=== PATIENT | male | born 1950 | race Two or more races ===

== ENCOUNTER → 2016-07-04 | Outpatient (CLI) | payer MEDICARE ==
--- NOTE | 2016-07-04 09:58 | RAD ---
BRAIN W/O CONTRAST Indication: RECENT FALLS, UNSTEADY GAIT, NO SX HX, NO PRIORS Reason: UNSTEADY GAIT / Spl. Instructions: NO CONTRAST PER ORDER / History: COMPARISON: None TECHNIQUE: Axial diffusion weighted imaging was obtained. Additional sagittal T1, axial T1, axial FLAIR, and axial T2 weighted imaging of the brain was also performed. FINDINGS: There are scattered foci of FLAIR signal hyperintensity in the periventricular white matter which are nonspecific but most likely related to sequelae of chronic small vessel ischemic disease. No evidence of acute intracranial hemorrhage. No restricted diffusion to indicate acute infarct. No extra-axial fluid collections. No midline shift or mass effect. Ventricular size is appropriate. Midline structures have a normal anatomic configuration. Basal cisterns are patent. Arterial flow voids at the skull base and major dural venous sinuses are maintained. Globes and orbits are unremarkable. Paranasal sinuses and mastoid air cells are clear. IMPRESSION: - No acute or recent infarct. No acute intracranial abnormality. - Nonspecific white matter disease likely representing sequelae of chronic small vessel ischemic disease. Electronically signed by: John Styles (Jul 04, 2016 09:56:43)
== END | disposition home or self-care (01) ==
LOC: MRI 08:20
PROVIDERS: ATTEND Family Medicine
DX: R26.81 Unsteadiness on feet (principal)
CPT/HCPCS: 70551

== ENCOUNTER 2019-03-25 06:36 | Day surgery (SDC) | payer MEDICARE, MEDICAID ==
[~2019-03-25] VITALS: Ht 165.1 cm; Wt 78.0 kg
[~2019-03-25 06:36] MED LIST: ATOR20TA58 PO; BUPIVACAINE-EPI 0.5%-1:200000 MPF 30 ML VIAL. INJ ONE; CHOL10003 PO; GABA600T7 PO; INSU100V13 SQ; METF10007 PO; METO-247 PO
[2019-03-25] MEDS ORDERED: LIDOCAINE 2% PF 5 ML VIAL. ONE (06:47)
[2019-03-25] MEDS ORDERED: PROPOFOL 20 ML IV ONE (06:47)
[2019-03-25] MEDS ORDERED: ONDANSETRON PF 4 MG/2 ML VIAL. ONE (06:47)
[2019-03-25] MEDS ORDERED: DEXAMETHASONE SOD PHOS 4 MG/ML VIAL ONE (06:47)
[2019-03-25] MEDS ORDERED: PROCHLORPERAZINE 10 MG/2 ML VIAL. IV PRN (07:00)
[2019-03-25] MEDS ORDERED: IV RINGERS,LACTATED 1000ML 1,000 ML IV SCH (07:00)
[2019-03-25] MEDS ORDERED: MORPHINE SULFATE 2 MG/ML VIAL. IV PRN (07:00)
[2019-03-25] MEDS ORDERED: LIDOCAINE 1% PF 2 ML VIAL. ID PRN (07:00)
[2019-03-25] MEDS ORDERED: ONDANSETRON PF 4 MG/2 ML VIAL. IV PRN (07:00)
[2019-03-25] MEDS ORDERED: HYDROmorphone 2 MG/ML VIAL IV PRN (07:00)
[2019-03-25] MEDS ORDERED: fentaNYL PF VIAL 100 MCG/2 ML VIAL IV PRN (07:00)
[2019-03-25] MEDS ORDERED: GELATIN SPONGE SIZE 100. ONE (07:14)
[2019-03-25] MEDS ORDERED: LIDOCAINE 2% JELLY 6ML IN APPLICATOR. ONE (07:14)
[2019-03-25 07:26] LABS: BASO # 0.1 x10^3/uL (0.0-0.2); BASO % 1 % (0-3); EOS # 0.2 x10^3/uL (0.0-0.7); EOS % 1 % (0-3); HEMATOCRIT 43.7 % (39.0-53.0); HEMOGLOBIN 15.2 g/dL (13.0-17.5); LYMPH # 4.4 x10^3/uL (1.0-4.8); LYMPH % 33 % (24-48); MEAN CORPUSCULAR HEMOGLOBIN 33 pg (25-35); MEAN CORPUSCULAR HGB CONC 35 g/dL (31-37); MEAN CORPUSCULAR VOLUME 94 fL (79-100); MONO # 1.1 x10^3/uL (0.0-1.1); MONO % 8 % (0-9); NEUT # 7.7 x10^3/uL (1.8-7.7); NEUT % 57 % (31-73); PLATELET COUNT 198 x10^3/uL (140-400); RED BLOOD COUNT 4.65 x10^6/uL (4.30-5.70); RED CELL DISTRIBUTION WIDTH 13.5 % (11.5-14.5); WHITE BLOOD COUNT 13.5 x10^3/uL (4.0-11.0)
[2019-03-25] MEDS: INSULIN LISPRO 100 UNIT/ML 3ML VIAL for OP,RR ONLY. SQ PRN ×3 (07:32→10:06)
[2019-03-25 07:35] LABS: CALCIUM 8.7 mg/dL (8.5-10.1); CREATININE 0.9 mg/dL (0.7-1.3); GFR 84.2; POTASSIUM 3.9 mmol/L (3.5-5.1); PROTHROMBIN TIME PATIENT 12.6 SEC (11.7-14.0)
[2019-03-25] MEDS ORDERED: fentaNYL PF VIAL 100 MCG/2 ML VIAL ONE (07:42)
[2019-03-25] MEDS ORDERED: ROCURONIUM 50 MG/5 ML VIAL. ONE (07:43)
[2019-03-25] MEDS ORDERED: ceFAZolin SODIUM 1 GM VIAL ONE (08:25)
[2019-03-25] MEDS ORDERED: NEOSTIGMINE METHYLSULFATE 5 MG/5 ML SYRINGE. ONE (08:38)
[2019-03-25] MEDS ORDERED: GLYCOPYRROLATE 1 MG/5 ML VIAL. ONE (08:38)
--- NOTE | 2019-03-25 08:57 | DISCH ---
DISCHARGE INSTRUCTIONS Condition on Discharge Condition on Discharge: Stable Activity After Discharge Activity Instructions for Disc: Activity as tolerated, Avoid exertion Lifting Instructions after Dis: No heavy lifting Driving Instructions after Dis: Do not drive today Diet after Discharge Diet after Discharge: Regular Wound Incision Care Other wound/incision instructi: ok to shower, frequent sitz bathes Follow-Up Follow up with: Chava 04/01/19 PATRICK LALA MD Mar 25, 2019 08:57
[2019-03-25] MEDS ORDERED: OXYC1TAB15 PO (09:12)
[2019-03-25] MEDS ORDERED: DOCU-150 PO (09:13)
[2019-03-25] MEDS ORDERED: SEVOFLURANE 31 TO 60 MINUTES. IH ONE (09:16)
[2019-03-25] MEDS ORDERED: LIDO30CR TP (09:16)
[2019-03-25] MEDS ORDERED: oxyCODONE/APAP 5/325 1 TAB TABLET PO ONE (09:30)
--- NOTE | 2019-03-25 09:32 | PDOC ---
BRIEF OPERATIVE NOTE Date: Mar 25, 2019 Pre-Op Diagnosis anal fissure Post-Op Diagnosis same Procedure Performed rigid procto LIS Surgeon Chava Anesthesia Type: General Blood Loss 5cc IV Fluid 1000cc Specimens Obtained perianal skin tag Findings anal fissure Complications none Operative Note Wk # [id number] PATRICK LALA MD Mar 25, 2019 09:32
[2019-03-25] MEDS: fentaNYL PF VIAL 100 MCG/2 ML VIAL IV PRN ×2 (09:34→09:47)
--- NOTE | 2019-03-25 09:37 | OP ---
DATE OF SURGERY: 03/25/2019 PREOPERATIVE DIAGNOSIS: Anal fissure. POSTOPERATIVE DIAGNOSIS: Anal fissure. PROCEDURE: 1. Rigid proctoscopy. 2. Lateral internal sphincterotomy. SURGEON: Patrick Lala MD ANESTHESIA: General endotracheal. BLOOD LOSS: 5 mL. INTRAVENOUS FLUIDS: A liter. DESCRIPTION OF PROCEDURE: The patient was brought to the operating suite, given general endotracheal anesthetic, placed in the prone jackknife position, buttocks taped apart. Visual exam of the anal orifice showed fissures at 12 and 6 o'clock with a sentinel pile at 12 o'clock. This was excised. With two fingers in the anal canal, the internal sphincter was divided with an 11 blade. Gentle 3-finger dilatation carried out. Good hemostasis was present. Gelfoam pack placed in the anal canal. Prior to the sphincterotomy, the rigid scope was inserted and advanced to approximately 10 cm from the anal verge where a large amount of soft stool was encountered and as such the scope was slowly removed and showed no evidence of mucosal abnormalities. A sterile dressing applied. The patient was taken out of the prone position, awakened from his anesthetic and taken to the recovery room in satisfactory condition. PATRICK LALA MD DR: DELILAH/cole JOB#: [id number] / [id number]
[2019-03-25 09:50] VITALS: BP 163/78
--- NOTE | 2019-03-26 19:08 | PATHOLOGY ---
[facility] Accession Number: [id number] . 01 Material submitted: . perianal area - PERIANAL SKIN TAG . 01 Clinical history: . Anal fissure . 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 (SHA:tammi; 03/26/2019) S 03/26/2019 1526 Local . 02 Electronically signed: . Flaquito Jhaveri MD, Pathologist NPI- [id number] . 01 Gross description: . The specimen is received in formalin, labeled "Frida, Phi, perianal skin tag", is a caldwell-purple, rubbery segment measuring 0.8 x 0.5 x 0.4 cm, margin is inked black, bisected and entirely submitted in A1. ([facility]; 03/25/2019) [facility] 03/25/2019 2018 Local . 02 Pathologist provided ICD-10: D23.5 . 02 CPT . 131403 Specimen Comment: A courtesy copy of this report has been sent to Specimen Comment: [phone], . Specimen Comment: Report sent to / DR MAX Performed at: 01 [facility] [address], [place], [place] [id number] MD Bobby Khan MD Phone: [phone] Performed at: 02 [facility] [address] [place], [place] [id number] MD Solomon Porras MD Phone: [phone]
== END 2019-03-25 10:25 | disposition home or self-care (01) ==
LOC: SURG 06:36
PROVIDERS: ATTEND Surgery
DX: K60.2 Anal fissure, unspecified (principal); I10 Essential (primary) hypertension; E78.00 Pure hypercholesterolemia, unspecified; E11.40 Type 2 diabetes mellitus with diabetic neuropathy, unspecified; F17.200 Nicotine dependence, unspecified, uncomplicated; Z79.01 Long term (current) use of anticoagulants; Z79.899 Other long term (current) drug therapy; Z96.651 Presence of right artificial knee joint; Z79.84 Long term (current) use of oral hypoglycemic drugs
CPT/HCPCS: 36415; 46080; 80048; 82962; 85025; 85610; 85730; 88305; A7015; J0690; J1100; J2001; J2405; J2704; J2710; J3010; J3490; J7120; A4461